=== PATIENT | male | born 1945 | race Caucasian/White ===

== ENCOUNTER → 2018-03-07 | Outpatient (CLI) | payer MEDICARE ==
[~2018-03-07] MED LIST: IOHEXOL 350 MG/ML 150 ML (OMNIPAQUE 350) VIAL IV ONE; RT-ALBUTEROL SULF 2.5 MG/3 ML PRE-MIX VIAL INH ONE
[2018-03-07 12:16] LABS: BUN/CREATININE RATIO 17; CREATININE SERUM 1.03 MG/DL (0.60-1.30); GFR ESTIMATED > 60
--- NOTE | 2018-03-07 16:07 | Diagnostic Imaging Report ---
PROCEDURE: CT angiography of the chest with contrast. TECHNIQUE: Multiple contiguous axial images were obtained through the chest after uneventful bolus administration of intravenous contrast. Reconstructed CTA MIP acquisitions were also performed. INDICATION: Shortness of breath. COMPARISON: No prior studies are available for comparison. FINDINGS: Evaluation of the pulmonary arterial system is without evidence of thromboembolism. No filling defects are identified within the central, lobar or segmental branches. The thoracic aorta is ectatic but nonaneurysmal. No dissection is seen. No pericardial or pleural fluid is identified. No definite axillary, hilar or mediastinal lymphadenopathy is seen. No parenchymal mass, nodule or infiltrate is seen. Upper abdomen does show a large cyst upper pole right kidney measuring 7.7 x 5.4 cm. IMPRESSION: 1. No evidence of pulmonary embolism or thoracic aortic dissection. 2. Large right renal cyst. Dictated by: Dictated on workstation # [id number]
== END ==
LOC: RT 11:34
PROVIDERS: ATTEND Nurse Practitioner Family
DX: J45.909 Unspecified asthma, uncomplicated (principal); R06.02 Shortness of breath
CPT/HCPCS: 36415; 71275; 82565; 84520; 94060; 94726; 94729

== ENCOUNTER 2018-04-03 19:45 | Outpatient (CLI) | payer MEDICARE, OTHER | END 2018-04-04 07:46 | disposition home or self-care (01) | LOC: SLEEP 19:45 | PROVIDERS: ATTEND Nurse Practitioner Family | DX: G47.10 Hypersomnia, unspecified (principal); R06.02 Shortness of breath; G47.50 Parasomnia, unspecified | CPT/HCPCS: 95810 ==

== ENCOUNTER → 2022-06-22 | Outpatient (CLI) | payer OTHER ==
[~2022-06-22] MED LIST changes: +CATHETER FLUSH 10 ML SYR IVP PRN; -IOHEXOL 350 MG/ML 150 ML (OMNIPAQUE 350) VIAL IV ONE; +REGADENOSON 0.4 MG/5 ML SYR (LEXISCAN) IV ONE; -RT-ALBUTEROL SULF 2.5 MG/3 ML PRE-MIX VIAL INH ONE
[2022-06-22 12:49] VITALS: BP 150/83
--- NOTE | 2022-06-22 14:57 | Cardiology Stress Test Report ---
Stress Test Report Date of Procedure/Referring: Date of Procedure: Jun 22, 2022 PCP Parish Argueta DO Admitting Physician Admitting Physician: Attending Physician: Neena Tierney MD Baseline Heart Rate: 80 Baseline Blood Pressure: Blood Pressure Systolic: 150 Blood Pressure Diastolic: 83 Baseline Vitals Vital Signs Date Time Temp Pulse Resp B/P (MAP) Pulse Ox O2 Delivery O2 Flow Rate FiO2 06/22/22 12:49 80 150/83 (105) 94 Baseline EKG: Baseline EKG: RBBB Summary After explaining the procedure to the patient, he signed a consent and then brought to the stress nuclear laboratory. Patient received 0.4 mg Lexiscan for stress test, ECG, heart rate and blood pressure were monitored continuously. Resting and stress dose of radio tracer were injected, imaging was acquired and reviewed in short axis, horizontal long axis and vertical long axis views. TID: 1.06 SSS: 6 SDS: 3 EF: 54 1. Patient tolerated Lexiscan well 2. Baseline right bundle branch block persisted during test 3. Reversible ischemia involving the mid to apical anterolateral and inferolateral wall 4. Normal left ventricular size, ejection fraction 54% NEENA TIERNEY MD Jun 22, 2022 14:57
== END ==
LOC: CARD 10:30
PROVIDERS: ATTEND Internal Medicine Cardiovascular Disease
DX: I08.3 Combined rheumatic disorders of mitral, aortic and tricuspid valves (principal); I25.10 Atherosclerotic heart disease of native coronary artery without angina pectoris; I11.9 Hypertensive heart disease without heart failure
CPT/HCPCS: 78452; 93017; A9502; C8929; 93306

== ENCOUNTER 2022-06-29 12:37 | Day surgery (SDC) | payer OTHER ==
[2022-06-29] VITALS (11 sets, daily range): BP systolic 102–138; BP diastolic 55–88
[~2022-06-29] VITALS: Ht 177.8 cm; Wt 86.6 kg
[2022-06-29] MEDS ORDERED: NS IV 1000 ML 1,000 ML IV SCH ×2 (12:45→16:15)
[2022-06-29] MEDS ORDERED: HEParin (CATH LAB) 2,000 ML IV ONE (12:51)
[2022-06-29] MEDS ORDERED: NS IV 1000 ML 1,000 ML ONE (12:51)
[2022-06-29] MEDS ORDERED: LIDOCAINE 1% INJ 30 ML (XYLOCAINE) VIAL ONE (12:51)
--- NOTE | 2022-06-29 13:18 | Diagnostic Imaging Report ---
INDICATION: Post cardiac catheter Pacemaker overlies the left chest. No failure, effusion or pneumothorax. Lungs clear. IMPRESSION: No acute appearing abnormality. Dictated by: Dictated on workstation # [id number]
[2022-06-29 13:22] LABS: HEMATOCRIT 44 % (40-54); HEMOGLOBIN 13.9 g/dL (13.3-17.7); MEAN CORPUSCULAR HEMOGLOBIN 30 pg (25-34); MEAN CORPUSCULAR HGB CONC 32 g/dL (32-36); MEAN CORPUSCULAR VOLUME 94 fL (80-99); MEAN PLATELET VOLUME 10.8 fL (9.0-12.2); PLATELET COUNT 190 10^3/uL (130-400); WHITE BLOOD COUNT 6.3 10^3/uL (4.3-11.0)
[2022-06-29 13:36] LABS: ALBUMIN 3.9 GM/DL (3.2-4.5); POTASSIUM 3.8 MMOL/L (3.6-5.0)
[2022-06-29 13:37] LABS: CALCIUM 9.3 MG/DL (8.5-10.1)
[2022-06-29 13:39] LABS: INR 1.1 (0.8-1.4); PROTHROMBIN TIME PATIENT 14.5 SEC (12.2-14.7); TOTAL PROTEIN 7.5 GM/DL (6.4-8.2)
[2022-06-29 13:40] LABS: BILIRUBIN,TOTAL 1.1 MG/DL (0.1-1.0)
[2022-06-29 13:42] LABS: CREATININE SERUM 1.29 MG/DL (0.60-1.30)
[2022-06-29] MEDS ORDERED: PANT40TA52 PO (13:53)
[2022-06-29] MEDS ORDERED: CHOL-34 PO (13:53)
[2022-06-29] MEDS ORDERED: ASPI-1238 PO (13:53)
[2022-06-29] MEDS ORDERED: FLUT1BLS3 IH (13:53)
[2022-06-29] MEDS ORDERED: FURO40TA4 PO (13:53)
[2022-06-29] MEDS ORDERED: CARV3.122 PO (13:53)
[2022-06-29] MEDS ORDERED: SACU1TAB2 PO (13:53)
[2022-06-29] MEDS ORDERED: ISOS120T9 PO (13:53)
[2022-06-29] MEDS ORDERED: APIX5TAB PO (13:53)
[2022-06-29] MEDS ORDERED: POTA-177 PO (13:53)
[2022-06-29] MEDS ORDERED: VIT1CAPS44 PO (13:53)
[2022-06-29] MEDS ORDERED: TMSL.4C PO (13:53)
[2022-06-29] MEDS ORDERED: PRAV20TA3 PO (13:53)
[2022-06-29] MEDS ORDERED: FLUT9.9S NS (13:53)
[2022-06-29] MEDS ORDERED: MIDAZOLAM 5 MG/5 ML (VERSED) VIAL ONE (14:58)
[2022-06-29] MEDS ORDERED: VERAPAMIL 5 MG/2 ML (CALAN) VIAL IV ONE (14:58)
[2022-06-29] MEDS ORDERED: HEParin 1000 UNIT/ML (10ML VIAL) FOR BOLUS ONE (14:58)
[2022-06-29] MEDS ORDERED: NITRO DRIP 25000 MCG/D5W 250 ML IV ONE (14:59)
[2022-06-29] MEDS ORDERED: fentaNYL INJ 100 MCG/2 ML AMP ONE (14:59)
--- NOTE | 2022-06-29 15:09 | Cardiac Procedure Note-CS/ASA ---
Pre-Procedure Note Pre-Op Procedure Note Date of Available H&P: Jun 23, 2022 Date H&P Reviewed: Jun 29, 2022 Time H&P Reviewed: 15:09 History & Physical: H&P Reviewed, Patient Examed, No changes noted Pre-Operative Diagnosis: CAD Conscious Sedation Pre-Proced Time 15:09 ASA Score 3 For ASA 3 and 4: Consider anesthesia and medical clearance. Also, for patients with a history of failed moderate sedation consider anesthesia. Airway Lungs Heart ASA score ASA 1: a normal healthy patient ASA 2: a patient with a mild systemic disease (mid diabetes, controlled hypertension, obesity ASA 3: a patient with a severe systemic disease that limits activity (angina, COPD, prior Myocardial infarction) ASA 4: a patient with an incapacitating disease that is a constant threat to life (CHF, renal failure) ASA 5: a moribund patient not expected to survive 24 hrs. (ruptured aneurysm) ASA 6: a declared brain- patient whose organs are being harvested. For emergent operations, add the letter E after the classification Mallampati Classification Grade 3 Sedation Plan Analgesia, Amnesia, Plan communicated to team members, Discussed options with patient/fam, Discussed risks with patient/fam The patient is an appropriate candidate to undergo the planned procedure, sedation, and anesthesia. The patient immediately re-assessed prior to indication. SARAH GONZALEZ MD Jun 29, 2022 15:09
--- NOTE | 2022-06-29 16:16 | Discharge Inst-Post CATH ---
Discharge Inst-CATH/EP Problems Reviewed?: Yes Post Cardiac Cath/EP D/C Inst Follow Up/Plan Appointment with Dr. Tierney's office in 2 to 4 weeks <b>CARDIAC CATH/EP PROCEDURE DISCHARGE INSTRUCTIONS</b> ACTIVITY * Go Home directly and rest. * Limit activity of the leg (or wrist if it was used) for 7 days including aer obics, swimming, jogging, bicycling, etc. * Restrict stair-climbing for 7 days if possible, if not, climb up with your non-cath leg, then bring together on the same step. * Avoid lifting, pushing, pulling or excessive movement of the affected extremi ty for 7 days. * Customary sexual activity may be resumed after 2 days-use caution not to use a position that strains or causes pain to the affected extremity. * No driving for 24 hours. * NO SMOKING. * Avoid straining for bowel movements for 7 days. * Gentle walking on level ground is allowed. * Returning to work will depend on the type of procedure and the results. Your doctor will discuss this with you. CALL YOUR DOCTOR FOR ANY OF THE FOLLOWING: *If bleeding from the puncture site occurs- Apply gentle pressure to site with clean cloth and call your doctor or EMS. * If a knot or lump forms under the skin, increases in size, or causes pain. * If bruising appears to be worsening or moving further down your leg instead of disappearing. * Temperature above 101 F. CARE OF YOUR GROIN INCISION; * Bruising or purple discoloration of the skin near the puncture site is common. * You may shower only, no bathtub bathing for 5 days. Be careful to avoid slipping as your leg may feel stiff. * If a closure device was used on your femoral artery, please see the attached guide regarding care of the device and your leg. * Leave dressing on FOR 24 hours. CARE OF YOUR WRIST INCISION; * Bruising or purple discoloration of the skin near the puncture site is common. * You may shower. * DO NOT submerge wrist. * Leave dressing on FOR 24 hours. SARAH TIERNEY MD Jun 29, 2022 16:16
--- NOTE | 2022-06-29 16:31 | Cardiac Cath Report ---
Cardiac Cath Report Physician (s)/Cook Soup (s) Physician SARAH GONZALEZ MD Pre-Procedure Diagnosis Pre-Procedure Diagnosis: CAD Post-Procedure Note Procedure Start Date: Jun 29, 2022 Name of Procedure: Left heart catheterization IFR to the ramus intermedius IVUS to the ramus intermedius Findings/Procedure Note PROCEDURE NOTE: 76-year-old gentleman with history of coronary artery disease, had an abnormal stress test, cardiomyopathy, scheduled for cardiac catheterization possible PTCA. After explaining the procedure to the patient, all pros and cons were explained, all questions were answered. The patient signed the consent and then he was placed in the cardiac catheterization laboratory. Groin was prepped in SL fashion local anesthesia was used. Sheath placed in the right radial artery, [place] catheter was used and advanced to the left ventricular cavity, pressure was measured, pullback LV to aorta was done, engage the right and left coronary system, angiogram was done. Patient had significant lesion at the ostium of the ramus intermedius/high obtuse marginal branch and proximal portion. I used EBU 3.5 guide then advanced IFR wire to the mid ramus intermedius, and IFR value was 1.0. I decided to proceed with IVUS evaluation, I advised the IVUS camera through the ostium of the ramus intermedius but I was unable to advance it through the proximal portion due to the calcification and tortuosity. Imaging of the proximal and ostial ramus intermedius showed significant lesion. At the end of the procedure the sheath was removed. Vascular band was used FINDINGS: Hemodynamics LV 93/19, end-diastolic pressure of 19 Aorta 88/58 mean of 70 ANATOMY: Left Main is calcified with mild disease nonobstructive disease 20% stenosis Left Anterior Descending has ectasia with heavy calcification. With multiple area of moderate stenosis at most 40 to 50% stenosis nonobstructive disease Left Circumflex is dominant artery with ectasia proximally, multiple segment of 50% stenosis, Ramus intermedius/high first obtuse marginal branch is heavily calcified with significant probably 70% to 80% stenosis at the ostium. 70% stenosis proximally. iFR was done was not significant but IVUS showed significant stenosis at the ostium. Could not cross the proximal lesion. Right Coronary Artery is nondominant artery, occluded at the midportion LV Gram was not done, pressure was measured CONCLUSION: 1. Severe ostial ramus intermedius/high obtuse marginal stenosis and severe proximal stenosis. 2. Diffuse heavy calcification with moderate stenosis in the LAD and circumflex artery 3. Occluded mid nondominant right coronary artery 4. Elevated left ventricular end-diastolic pressure DISCUSSION AND RECOMMENDATION: I discussed the management plan with the patient and his family, will arrange for evaluation at a tertiary care center with possible atherectomy to the ramus intermedius. Anesthesia Type: Conscious Sedation Estimated blood loss (mL): 25 ml Contrast Amount: 80 ml Total Radiation Dose: 1055 mGy Post-Procedure Diagnosis Post-operative diagnosis: Chest pain Coronary artery disease Congestive heart failure, dilated cardiomyopathy, ischemic cardiomyopathy Hypertension Hyperlipidemia SARAH GONZALEZ MD Jun 29, 2022 16:31
== END 2022-06-29 19:45 | disposition home or self-care (01) ==
LOC: CATH 12:37 → SDC 16:23 → CATH 19:45
PROVIDERS: ATTEND Internal Medicine Cardiovascular Disease
DX: I25.10 Atherosclerotic heart disease of native coronary artery without angina pectoris (principal); I42.0 Dilated cardiomyopathy; I11.0 Hypertensive heart disease with heart failure; E78.2 Mixed hyperlipidemia; I50.22 Chronic systolic (congestive) heart failure; I25.5 Ischemic cardiomyopathy; Z79.82 Long term (current) use of aspirin; Z79.01 Long term (current) use of anticoagulants; Z79.899 Other long term (current) drug therapy; Z87.891 Personal history of nicotine dependence; I48.0 Paroxysmal atrial fibrillation; Z86.718 Personal history of other venous thrombosis and embolism; Z95.0 Presence of cardiac pacemaker
CPT/HCPCS: 71045; 80053; 85027; 85610; 85730; 87081; 92978; 93005; 93458; 93571; C1769 ×2; C1887; C1894; 36415